=== PATIENT | female | born 1960 | race African-American/Black ===

== ENCOUNTER → 2017-01-29 | Outpatient (CLI) | payer OTHER ==
[~2017-01-29] MED LIST: ALBUTEROL17 GM INH; BACLOFEN20 M1 PO; HYDROCODON-ACE1 EAC5; OXYCONTIN20 MG PO; SYMBICORT80 INH
--- NOTE | ~2017-01-29 | US6 ---
[facility] A Service of [facility] RADIOLOGY TEXT RESULTS PATIENT: BAILEE BOSTON LOCATION: [facility] : 60 UNIT #: [id number] AGE: [address]: Trey Cruz MD SEX: F ORDER DR: [id number] [address] [address] [id number] O MR#: [id number] Acc #: [id number] NAME: BAILEE BOSTON : 1960 SEX: F STUDY DATE/TIME: 01/29/2017 8:31 UNIT: [facility] ROOM: STUDY DESCRIPTION: US Abdominal Limited Attending Physician: Trey Cruz III, M.D. Referring Physician: Trey Cruz III, M.D. Ordering Physician: Trey Cruz III, M.D. Primary Care Physician: Eugenia Bueno A.P.R.N. MEDICAL IMAGING REPORT This report is preliminary unless electronic signature is present. EXAM Abdominal ultrasound, complete, 01/29/2017. HISTORY Hepatitis C followup observation for hepatocellular carcinoma. Back pain for 3 days. FINDINGS The liver is homogeneous in echotexture and demonstrates no cystic or solid mass lesions. The intra and extrahepatic bile ducts are not dilated. The gallbladder is normal with no evidence of cholelithiasis, wall thickening, or pericholecystic fluid. The common duct measures 2 mm. Pancreas is poorly visualized due to overlying bowel gas. The spleen measures 10 cm in greatest diameter. The visualized portions of the abdominal aorta and inferior vena cava are within normal limits. The kidneys are normal bilaterally. IMPRESSION Poor visualization of the pancreas due to overlying bowel gas. Otherwise negative abdominal ultrasound. Dictated by... Buddy Montana M.D. THIS IS AN ELECTRONICALLY VERIFIED REPORT Buddy Montana M.D. at 01/30/2017 8:12 AM GURWINDER/juan luis TD: 01/29/2017 13:47 JOB #: [id number] [facility] A Service of [facility] RADIOLOGY TEXT RESULTS PATIENT: BAILEE BOSTON LOCATION: [facility] #: [id number] : 60 UNIT #: [id number] AGE: [address]: Trey Cruz MD SEX: F ORDER DR: MEDICAL IMAGING REPORT Page 1 of 1
== END | disposition home or self-care (01) ==
LOC: SGUS 08:16
DX: B18.2 Chronic viral hepatitis C (principal)
CPT/HCPCS: 76705

== ENCOUNTER 2017-01-31 18:40 | Emergency (ER) | payer OTHER ==
[~2017-01-31 18:40] MED LIST changes: -HYDROCODON-ACE1 EAC5
[2017-01-31] MEDS ORDERED: HYDROCODON-ACE1 EAC5 (18:44)
[2017-01-31 19:45] LABS: URINE SOURCE CLEAN CATCH
[2017-01-31 19:47] LABS: URINE APPEARANCE CLEAR; URINE BILIRUBIN NEG (NEG); URINE BLOOD NEG (NEG); URINE COLOR YELLOW; URINE GLUCOSE NEG (NORM); URINE KETONE NEG (NEG); URINE LEUKOCYTE ESTERASE NEG (NEG); URINE NITRATE NEG (NEG); URINE PH 6.5 (5-8); URINE PROTEIN NEG (NEG)
[2017-01-31 19:49] LABS: MICRO INDICATED? NO
[2017-01-31 20:04] LABS: BASOPHIL# 0.1 X10e3 (0-0.3); BASOPHIL% 0.9 % (0-2.5); EOSINOPHIL# 0.5 X10e3 (0-0.7); EOSINOPHIL% 6.1 % (0.0-7.0); HEMATOCRIT 39.1 % (35.0-45.0); HEMOGLOBIN 13.5 gm/dL (12.0-16.0); LYMPHOCYTE# 3.1 X10e3 (1.0-3.5); LYMPHOCYTE% 38.6 % (17.0-45.0); MEAN CELL VOLUME 85.4 FL (83-96); MEAN CORPUSCULAR HEMOGLOBIN 29.4 PG (28-34); MEAN CORPUSCULAR HGB CONC 34.4 g/dL (30-36); MEAN PLATELET VOLUME 8.3 FL (6.5-11.5); MONOCYTE% 12.8 % (3.0-12.0); NEUTROPHIL# 3.3 X10e3 (1.5-7.1); NEUTROPHIL% 41.6 % (40-75); PLATELET COUNT 246 X10e3 (140-420); RED BLOOD COUNT 4.58 X10e (3.90-5.30); RED CELL DISTRIBUTION WIDTH 13.3 % (11.0-15.5)
[2017-01-31 20:05] LABS: DIFF IND NO
[2017-01-31 20:18] LABS: ALBUMIN SERUM 3.9 g/dL (3.5-5.0); BILIRUBIN,TOTAL 0.4 mg/dL (0.2-2.0); CALCIUM SERUM 8.6 mg/dL (8.4-10.2); CREATININE SERUM 0.8 mg/dL (0.6-1.4); GLOM FILT RATE Estimated 95.6 mL/min (>60); PROTEIN TOTAL SERUM 7.8 g/dL (6.0-8.3)
== END 2017-01-31 20:51 | disposition home or self-care (01) ==
LOC: SED 18:40
PROVIDERS: Physician Assistant
DX: M54.5 Low back pain (principal); B35.6 Tinea cruris; E87.6 Hypokalemia; J43.9 Emphysema, unspecified; J45.909 Unspecified asthma, uncomplicated; Z90.710 Acquired absence of both cervix and uterus; Z88.0 Allergy status to penicillin
CPT/HCPCS: 36415; 80053; 81003; 85025; 96372; 99283; J1885

== ENCOUNTER 2017-02-09 21:26 | Emergency (ER) | payer OTHER ==
--- NOTE | ~2017-02-09 | CR126 ---
[facility] A Service of [facility] RADIOLOGY TEXT RESULTS PATIENT: BAILEE BOSTON LOCATION: [facility] : 60 UNIT #: [id number] AGE: [address]: Williams Baker MD SEX: F ORDER DR: [id number] [address] [address] [id number] E MR#: [id number] Acc #: [id number] NAME: BAILEE BOSTON : 1960 SEX: F STUDY DATE/TIME: 02/09/2017 22:25 UNIT: SED ROOM: STUDY DESCRIPTION: CR Foot Complete Min 3 View Lt Attending Physician: Williams Baker M.D. Ordering Physician: Williams Baker M.D. Primary Care Physician: Eugenia Bueno A.P.R.N. MEDICAL IMAGING REPORT This report is preliminary unless electronic signature is present. EXAM Left foot. INDICATIONS Trauma status post fall out of a chair. Landed on the foot. FINDINGS Three views of the left foot without comparison. There is no acute fracture or dislocation. Alignment is anatomic. No foreign body. IMPRESSION No acute findings. Dictated by... Andreas Franklin M.D. THIS IS AN ELECTRONICALLY VERIFIED REPORT Andreas Franklin M.D. at 02/11/2017 1:03 AM ROBERT/jodie TD: 02/10/2017 14:11 JOB #: [id number] MEDICAL IMAGING REPORT Page 1 of 1
[~2017-02-09 21:26] MED LIST changes: +HYDROCODON-ACE1 EAC5
== END 2017-02-10 00:05 | disposition home or self-care (01) ==
LOC: SED 21:26
DX: S93.602A Unspecified sprain of left foot, initial encounter (principal); W20.8XXA Other cause of strike by thrown, projected or falling object, initial encounter; Y92.009 Unspecified place in unspecified non-institutional (private) residence as the place of occurrence of the external cause; J44.9 Chronic obstructive pulmonary disease, unspecified; M54.9 Dorsalgia, unspecified; G89.29 Other chronic pain
CPT/HCPCS: 73630; 99283